=== PATIENT | male | born 1950 | race Caucasian/White ===

== ENCOUNTER → 2019-07-04 | Outpatient (CLI) | payer MEDICARE | DX: R53.83 Other fatigue (principal); R22.9 Localized swelling, mass and lump, unspecified ==

== ENCOUNTER 2019-07-09 13:45 | Observation (INO) | payer MEDICARE ==
--- NOTE | 2019-07-09 13:52 | ED.PDOC ---
History of Present Illness - General Time Seen by Provider: 07/09/19 13:51 - History of Present Illness Initial Comments: 68 yo M PMH HTN HL Thyroid Disease presents to ED c/o cough SOB x 1 day. Also admits mcfarland and PND denies fever chills nausea vomiting diarrhea chest pain diaph oresis. No change in diet bowel or bladder symptoms disturb rest when lying flat. Admits dipping tobacco denies drinking or smoking admits FH HTN denies FH DM has PMD Dr. Iyer for follow up no other c/o today. Allergies/Adverse Reactions: Allergies NO KNOWN ALLERGY Allergy (Verified 07/09/19 14:20) Review of Systems - Review of Systems Constitutional: States: see HPI EENTM: States: see HPI Respiratory: States: see HPI Cardiology: States: see HPI Gastrointestinal/Abdominal: States: see HPI Genitourinary: States: see HPI Musculoskeletal: States: see HPI Skin: States: see HPI Neurological: States: see HPI Endocrine: States: see HPI Hematologic/Lymphatic: States: see HPI All other Systems: Reviewed and Negative Family Medical History - Family History Brother Living Status: Hx Family Hypertension: Yes Physical Exam - Physical Exam General Appearance: No apparent distress Ears, Nose, Throat: normal ENT inspection Neck: non-tender, full range of motion Respiratory: rales, wheezing Cardiovascular/Chest: regular rate, rhythm Gastrointestinal/Abdominal: non tender, soft Rectal Exam: deferred Back Exam: no CVA tenderness Extremity: swelling Neurologic: no motor/sensory deficits Skin Exam: normal color Progress - Progress Progress: 07/09/19 14:04 A/P-Cough SOB-iv cbc cmp lipase bnp trop ekg cxr playground monitor pulse ox flu strep reassess 07/09/19 16:44 Laboratory Tests 07/09/19 07/09/19 07/09/19 13:57 14:03 14:03 WBC 9.9 RBC 4.71 Hgb 14.2 Hct 42.3 MCV 89.8 MCH 30.0 MCHC 33.5 RDW 13.0 Plt Count 478 H MPV 6.7 L Absolute Neuts (auto) 7.00 H Absolute Lymphs (auto) 1.70 Absolute Monos (auto) 0.80 Absolute Eos (auto) 0.20 Absolute Basos (auto) 0.10 Neutrophils % 71.0 Lymphocytes % 17.7 L Monocytes % 7.9 Eosinophils % 2.2 Basophils % 1.2 PT 10.0 INR 1.01 PTT (SP) 27.5 Sodium Potassium Chloride Carbon Dioxide Anion Gap BUN Creatinine BUN/Creatinine Ratio Random Glucose Serum Osmolality Lactic Acid Calcium Total Bilirubin AST ALT Alkaline Phosphatase Troponin I B-Natriuretic Peptide 57.9 Serum Total Protein Albumin Globulin Albumin/Globulin Ratio Lipase Urine Color Urine Appearance Urine pH Ur Specific [place] Urine Protein Urine Glucose (UA) Urine Ketones Urine Blood Urine Nitrite Urine Bilirubin Urine Urobilinogen Ur Leukocyte Esterase Urine RBC Urine WBC Ur Epithelial Cells Urine Bacteria Group A Strep Rapid 07/09/19 07/09/19 07/09/19 14:03 14:03 14:03 WBC RBC Hgb Hct MCV MCH MCHC RDW Plt Count MPV Absolute Neuts (auto) Absolute Lymphs (auto) Absolute Monos (auto) Absolute Eos (auto) Absolute Basos (auto) Neutrophils % Lymphocytes % Monocytes % Eosinophils % Basophils % PT INR PTT (SP) Sodium 138 Potassium 3.8 Chloride 104 Carbon Dioxide 28 Anion Gap 9.8 L BUN 17 Creatinine 0.96 BUN/Creatinine Ratio 17.7 Random Glucose 85 Serum Osmolality 276.5 Lactic Acid 1.4 Calcium 9.0 Total Bilirubin 0.6 AST 19 ALT 18 Alkaline Phosphatase 58 Troponin I < 0.02 B-Natriuretic Peptide Serum Total Protein 7.8 Albumin 3.4 Globulin 4.4 H Albumin/Globulin Ratio 0.8 L Lipase 34 Urine Color Urine Appearance Urine pH Ur Specific [place] Urine Protein Urine Glucose (UA) Urine Ketones Urine Blood Urine Nitrite Urine Bilirubin Urine Urobilinogen Ur Leukocyte Esterase Urine RBC Urine WBC Ur Epithelial Cells Urine Bacteria Group A Strep Rapid 07/09/19 07/09/19 07/09/19 14:53 14:53 15:36 WBC RBC Hgb Hct MCV MCH MCHC RDW Plt Count MPV Absolute Neuts (auto) Absolute Lymphs (auto) Absolute Monos (auto) Absolute Eos (auto) Absolute Basos (auto) Neutrophils % Lymphocytes % Monocytes % Eosinophils % Basophils % PT INR PTT (SP) Sodium Potassium Chloride Carbon Dioxide Anion Gap BUN Creatinine BUN/Creatinine Ratio Random Glucose Serum Osmolality Lactic Acid Calcium Total Bilirubin AST ALT Alkaline Phosphatase Troponin I < 0.02 B-Natriuretic Peptide Serum Total Protein Albumin Globulin Albumin/Globulin Ratio Lipase Urine Color Yellow Urine Appearance Clear Urine pH 5.0 Ur Specific [place] 1.010 Urine Protein Negative Urine Glucose (UA) Negative Urine Ketones Negative Urine Blood Moderate H Urine Nitrite Negative Urine Bilirubin Negative Urine Urobilinogen 0.2 Ur Leukocyte Esterase Negative Urine RBC 1-3 Urine WBC 0 Ur Epithelial Cells 0 Urine Bacteria 0 Group A Strep Rapid Negative EXAM DESCRIPTION: Chest,1 View CLINICAL HISTORY: SOB COMPARISON: None available FINDINGS: The cardiac silhouette is enlarged, bilateral hilar prominence. Moderate size right-sided pleural effusion. Bilateral interstitial and patchy alveolar opacities. Mass lesion in the left lung apex. The lung volumes are within normal range. There is no pneumothorax or acute fracture. IMPRESSION: Mass lesion in the left lung apex concerning for neoplasm. Chest CT with IV contrast is recommended. Bilateral pneumonia or edema with a moderate sized right-sided pleural effusion. Electronically signed by: Darion Bustos MD 07/09/2019 2:46 PM CDT Dx-Lung Mass, Pleural Effusion EXAM DESCRIPTION: CTA Chest CLINICAL HISTORY: 68 years Male pleural effusion SOB query mass COMPARISON: Radiograph of the chest performed on the same day. TECHNIQUE: Images were obtained in axial, sagittal, and coronal planes. Intravenous contrast was administered. Multiplanar reconstruction was performed. This exam was performed according to our departmental dose-optimization program which includes use of Automated Exposure Control, adjustment of the mA and/or kV according to patient size and/or use of iterative reconstruction technique. FINDINGS: No filling defects pulmonary arteries bilaterally. No aortic dissection or dilatation. Large right pleural effusion. Moderate left pleural effusion. Increased pulmonary vascularity. Multiple nodular lesions lung lee bilaterally. The findings measures 60 Hounsfield units and greater. 6.0 x 6.2 cm mass versus confluent nodularity contiguous with right heart. Pericardial involvement suspected. Additional hilar adenopathy bilaterally. The largest on the right measures 3.4 cm. The largest on the left measures 3.1 cm. Airspace at tenuation lower lobes bilaterally right greater than left consistent with infiltrate and atelectatic change. No abnormality upper abdomen. Small hiatal hernia. No acute osseous abnormality. Marked degenerative change thoracic spine. IMPRESSION: No evidence for pulmonary embolus. No aortic dissection or dilatation. Extensive noncalcified nodular lesions lung lee bilaterally most suspicious for metastatic disease. Inflammatory process less likely. 6 cm confluent nodularity versus nodular mass contiguous with right atrium. Associated infiltrate and atelectatic change lower lobes bilaterally. Bilateral pleural effusions right greater than left. Superimposed congestive heart failure suspected. Electronically signed by: Dede Becerra MD 07/09/2019 5:36 PM CDT 07/09/19 18:24 07/09/19 19:04 ADMIT - Results/Orders Results/Orders: EKG-non specific TW changes No STEMI [id number] Departure - Departure Clinical Impression: Pleural effusion, Lung mass Bilateral pneumonia Qualifiers: Pneumonia type: due to unspecified organism Lung location: unspecified part of lung Qualified Code(s): J18.9 - Pneumonia, unspecified organism Disposition: Admit Patient Condition: Poor Decision To Admit - Decistion To Admit Decision to Admit Date: 07/09/19 Decision to Admit Time: 19:06 - Gia Ferreira Accepts
[2019-07-09] MEDS ORDERED: DEXAMETHASONE INJ 10 MG/ML VIAL IV ONE (13:58)
--- NOTE | 2019-07-09 14:48 | RAD ---
EXAM DESCRIPTION: Chest,1 View CLINICAL HISTORY: SOB COMPARISON: None available FINDINGS: The cardiac silhouette is enlarged, bilateral hilar prominence. Moderate size right-sided pleural effusion. Bilateral interstitial and patchy alveolar opacities. Mass lesion in the left lung apex. The lung volumes are within normal range. There is no pneumothorax or acute fracture. IMPRESSION: Mass lesion in the left lung apex concerning for neoplasm. Chest CT with IV contrast is recommended. Bilateral pneumonia or edema with a moderate sized right-sided pleural effusion. Electronically signed by: Darion Bustos MD 07/09/2019 2:46 PM CDT
[2019-07-09] MEDS ORDERED: IPRATROPIUM/ALBUTEROL 3 ML VIAL NEB ONE (17:03)
--- NOTE | 2019-07-09 17:38 | CT ---
EXAM DESCRIPTION: CTA Chest CLINICAL HISTORY: 68 years Male pleural effusion SOB query mass COMPARISON: Radiograph of the chest performed on the same day. TECHNIQUE: Images were obtained in axial, sagittal, and coronal planes. Intravenous contrast was administered. Multiplanar reconstruction was performed. This exam was performed according to our departmental dose-optimization program which includes use of Automated Exposure Control, adjustment of the mA and/or kV according to patient size and/or use of iterative reconstruction technique. FINDINGS: No filling defects pulmonary arteries bilaterally. No aortic dissection or dilatation. Large right pleural effusion. Moderate left pleural effusion. Increased pulmonary vascularity. Multiple nodular lesions lung lee bilaterally. The findings measures 60 Hounsfield units and greater. 6.0 x 6.2 cm mass versus confluent nodularity contiguous with right heart. Pericardial involvement suspected. Additional hilar adenopathy bilaterally. The largest on the right measures 3.4 cm. The largest on the left measures 3.1 cm. Airspace attenuation lower lobes bilaterally right greater than left consistent with infiltrate and atelectatic change. No abnormality upper abdomen. Small hiatal hernia. No acute osseous abnormality. Marked degenerative change thoracic spine. IMPRESSION: No evidence for pulmonary embolus. No aortic dissection or dilatation. Extensive noncalcified nodular lesions lung lee bilaterally most suspicious for metastatic disease. Inflammatory process less likely. 6 cm confluent nodularity versus nodular mass contiguous with right atrium. Associated infiltrate and atelectatic change lower lobes bilaterally. Bilateral pleural effusions right greater than left. Superimposed congestive heart failure suspected. Electronically signed by: Dede Becerra MD 07/09/2019 5:36 PM CDT
--- NOTE | 2019-07-09 20:52 | HP ---
SUPERVISING PHYSICIAN: Forest Amaral MD CHIEF COMPLAINT: Cough and shortness of breath. HISTORY OF PRESENT ILLNESS: This is an 68 year-old male patient who presented to the Emergency Room with coughing, shortness of breath or around 10 days. He also said he was significantly short of breath with exertion but he has had no fever, chills, nausea or vomiting. No chest pain. He does use smokeless tobacco but he has not smoked tobacco or used any ETOH. He is significantly short of breath when he lies flat. He is not taking anything to relieve his symptoms. He is supposed to see Dr. Iyer at some point but he has seen Dr. Amaral in the past. In the Emergency Room, his initial vital signs showed temperature of 99.3, heart rate 80, blood pressure 181/95, respiratory rate 32% with a 92% oxygen saturation on room air. His initial lab studies showed a CBC that was basically within normal limits. His temperature was also within normal limits, lactic acid of 1.4 with a troponin of less than 0.02. Urinalysis was negative. Group A strep was negative. Influenza per PCR was negative. Blood cultures were drawn. Initial chest x-ray showed: Mass lesion in the left lung apex concerning for neoplasm. Chest CT with IV contrast recommendations. Bilateral pneumonia or edema with a moderate sized left-sided pleural effusion. I was called for admission but requested a CT of the chest to be done as well as several breathing treatments. The patient was given some breathing treatments and he was also given some Decadron. CTA was done and the report showed no evidence for pulmonary embolus, no aortic dissection or dilatation. Extensive noncalcified nodular lesions lung lee bilaterally most consistent for a metastatic disease, inflammatory process less likely, 6 cm confluent nodularity versus nodular mass contiguous with right atrium. Associated infiltrate and atelectatic change, lower lobe bilaterally. Bilateral pleural effusions right greater than left, superimposed congestive heart failure suspected. The patient was admitted to the hospital for bilateral pneumonia. PAST MEDICAL HISTORY: 1. Hyperlipidemia. 2. Hypertension. 3. Hypothyroidism. PAST SURGICAL HISTORY: None. CURRENT MEDICATIONS: Per the EMR and awaiting verification. ALLERGIES: No known drug allergies. FAMILY HISTORY: SOCIAL HISTORY: He is retired as a former ranch campo. He uses smokeless tobacco. He denies any cigarette, ETOH or illicit drug use. REVIEW OF SYSTEMS: GENERAL: Negative for fever, fatigue or weight changes. . HEENT: Negative for sinus symptoms, ear pain, vision changes, shortness of breath. . RESPIRATORY: Positive for coughing, shortness of breath. Negative for wheezing. CARDIAC: Negative for chest pain, palpitations, tachycardia. GI: Negative for nausea or vomiting, diarrhea or constipation. . GENITOURINARY: Negative for hematuria, dysuria, polyuria. MUSCULOSKELETAL: Negative for arthralgias, myalgias.. SKIN: Negative for lesions or rashes. NEUROLOGICAL: Negative for headaches, weakness or seizures. PHYSICAL EXAMINATION: VITAL SIGNS: Temperature 99.3, heart rate 84, blood pressure 180/77, respiratory rate now 22, oxygen saturation 94% on room air. GENERAL: This is a 68 year-old male patient lying in his hospital bed. He is in no acute distress. HEENT: Normocephalic and atraumatic. Pupils equal and reactive. Oropharynx clear.l NECK: Supple without mass. RESPIRATORY: Essentially clear to auscultation. He is diminished at the bases. He speaks in 4 to 5 word phrases but his breathing is nonlabored. He is actually eating at this time. CARDIOVASCULAR: Regular rate and rhythm. ABDOMEN: Soft, nondistended, non-tender. Bowel sounds are positive. EXTREMITIES: No cyanosis, clubbing, or edema. NEUROLOGIC: He is awake, alert, and oriented x3. SKIN: Warm and dry. Labs and films are as per the history of present illness. ASSESSMENT: 1. Bilateral lower lobe pneumonia, most likely community acquired. 2. Lung mass as per chest x-ray and CTA consistent with a neoplastic etiology. Will need further workup. 3. Hyperlipidemia. 4. Hypertension. 5. Hypothyroidism on supplementation. PLAN: The patient has been placed in observation. We will treat his pneumonia and I have initiated the pneumonia guidelines and he has been started on Levaquin. Will monitor his cultures as they become available. He will be on the pneumonia guidelines. I will restart her home medications as soon as they are verified. He will have Lovenox for DVT prophylaxis and upon discharge he will need an oncology workup with his primary care physician, Dr. Welch;. I have ordered lab for in the morning.. He will have judicious fluids overnight and we will continue to monitor closely and follow as needed. #[id number]
[2019-07-09] MEDS ORDERED: ACETAMINOPHEN 325 MG TAB PO PRN (22:17)
[2019-07-09] MEDS ORDERED: ALBUTEROL SULFATE 2.5 MG/3 ML VIAL NEB PRN (22:17)
[2019-07-09] MEDS ORDERED: SODIUM CHLORIDE 0.9% (FLUSH) 10 ML SYG IV PRN (22:17)
[2019-07-09] MEDS ORDERED: ONDANSETRON INJ 4 MG/2 ML VIAL IV PRN (22:17)
[2019-07-09] MEDS ORDERED: cloNIDine HCL 0.1 MG TAB PO ONE (22:29)
[2019-07-09] MEDS ORDERED: IV SET AND CAP CHANGE INJ INJ SCH (22:30)
[2019-07-09] MEDS ORDERED: levoFLOXacin 500MG IV 500 MG in PREMIX BAG 1 BAG IVPB SCH (22:30)
[2019-07-09] MEDS ORDERED: levoFLOXacin 500MG IV 100 ML IVPB ONE (22:37)
[2019-07-10] MEDS ORDERED: LEVOTHYROXINE SODIUM 0.025 MG TAB ONE (00:58)
[2019-07-10] MEDS ORDERED: LEVOTHYROXINE SODIUM 0.075 MG TAB ONE (00:58)
[2019-07-10] MEDS ORDERED: methylPREDNISolone SODIUM SUC 40 MG/ML VIAL IV SCH (06:00)
[2019-07-10] MEDS ORDERED: PANTOPRAZOLE SODIUM IV 40 MG VIAL IV SCH (06:30)
[2019-07-10] MEDS ORDERED: LEVOTHYROXINE SODIUM 0.1 MG TAB PO SCH (07:00)
[2019-07-10] MEDS ORDERED: LEVOTHYROXINE SODIUM 0.1 MG TAB ONE (07:00)
--- NOTE | 2019-07-10 07:22 | RAD ---
EXAM: Two view chest. INDICATION: Pneumonia. COMPARISON: Chest x-ray: 06/10/2019. FINDINGS: Again noted are bilateral pulmonary masses with a right basilar airspace opacity and moderate right pleural effusion. There is a small left pleural effusion. The heart size is stable. There is no pneumothorax. The bones are unchanged. IMPRESSION: No significant change compared to the prior exam. Bilateral pulmonary masses with bilateral pleural effusions, right pleural effusion larger than the left Electronically signed by: Jabari Barton MD 07/10/2019 7:21 AM CDT
[2019-07-10] MEDS ORDERED: IPRATROPIUM/ALBUTEROL 3 ML VIAL INH SCH (08:00)
[2019-07-10] MEDS ORDERED: LISINOPRIL 10 MG TAB ONE (08:03)
[2019-07-10] MEDS ORDERED: NON-FORMULARY MEDICATION 1 EA MIS (Lisinopril [Lisinopril] 20 MG) PO SCH (09:00)
[2019-07-10] MEDS ORDERED: METOPROLOL SUCCINATE XL 100 MG TAB PO SCH (09:00)
[2019-07-10] MEDS ORDERED: SODIUM CHLORIDE 0.9% (FLUSH) 10 ML SYG IV SCH (09:00)
[2019-07-10 10:36] VITALS: O2SAT 97
[2019-07-10 13:53] VITALS: BP 150/66; TEMP 98.5
[2019-07-10] MEDS ORDERED: ENOXAPARIN SODIUM 40 MG/0.4 ML SYG SUBCU SCH (21:00)
[2019-07-11] MEDS ORDERED: LEVOTHYROXINE SODIUM 0.1 MG TAB PO SCH (07:00)
[2019-07-11] MEDS ORDERED: LISINOPRIL 10 MG TAB PO SCH (09:00)
--- NOTE | 2019-07-13 10:55 | DS ---
SUPERVISING PHYSICIAN: Lloyd Nolasco MD DISCHARGE DIAGNOSIS: 1. Bilateral lower lobe pneumonia, most likely community acquired. 2. Lung mass as per chest x-ray and CTA consistent with a neoplastic etiology. Will need further workup. 3. Hyperlipidemia. 4. Hypertension. 5. Hypothyroidism on supplementation. HISTORY OF PRESENT ILLNESS: This is an 68-year-old male patient who presented to the Emergency Room with coughing, shortness of breath that had been going on about 10 days. He also was significantly short of breath with exertion but he had no fever, chills, nausea or vomiting. No chest pain. He does use smokeless tobacco but he has not smoked tobacco or used any ETOH in many years. He is significantly short of breath when he lies flat. He did not take any OTC medications. He was somewhat confused initially and thought he was supposed to see Dr. Iyer, but actually he had seen Dr. Amaral recently. In the Emergency Room, his initial vital signs showed temperature of 99.3, heart rate 80, blood pressure 181/95, respiratory rate 32% with a 92% oxygen saturation on room air. His initial lab studies showed a CBC that was within normal limits. Electrolytes were basically within normal limits. Lactic acid was 1.4, troponin less than 0.02. Urinalysis was negative. Group A strep was negative. Influenza per PCR was negative. Blood cultures were drawn. Initial chest x-ray showed: Mass lesion in the left lung apex concerning for neoplasm. Chest CT with IV contrast was recommended. Bilateral pneumonia or edema with a moderate sized left-sided pleural effusion. I was called for admission but requested a CT of the chest to be done as well as several breathing treatments. The patient was given some breathing treatments in the Emergency Room as well as some Decadron. CTA of the chest was done and the report showed no evidence for pulmonary embolus, no aortic dissection or dilatation. Extensive noncalcified nodular lesions in lung lee bilaterally most consistent with metastatic disease, inflammatory process less likely, 6 cm confluent nodularity versus nodular mass contiguous with right atrium. Associated infiltrate and atelectatic changes, lower lobe bilaterally. Bilateral pleural effusions, right greater than left, superimposed congestive heart failure suspected. The patient was admitted to the hospital in observation. HOSPITAL COURSE: The pneumonia guidelines were initiated. He was started on Levaquin. His cultures were monitored. His home medications were restarted. He was on Lovenox for DVT prophylaxis. He had judicious fluids overnight and he was much improved by the morning. His respiratory rate was normal. He has no complaints of shortness of breath or chest pain. I spoke with Dr. Amaral and he had done a workup prior to his admission to the Emergency Room. He had some lymph nodes that were prominent in his left axilla. He also had a mammogram of the left breast. I told him the findings of the CTA and he would see him in followup after discharge. LABORATORY: Initial WBC was 9.9. It did go up to 13,000 on the second day. Hemoglobin and hematocrit were stable. He did have a slight left shift on differential the morning of discharge. Electrolytes are within normal limits. Glucose was up to 114. MICROBIOLOGY: Blood cultures pending. Group A Strep culture is pending. RADIOLOGY: Followup chest x-ray shows no significant change compared to prior exam. Bilateral pulmonary masses with bilateral pleural effusion, right larger than left. DISCHARGE PLAN: The patient will be discharged home in stable condition. He is to resume his previous diet and increase his activity as tolerated. He has a followup appointment with Dr. Amaral on 07/13/19 at 8:45 AM. He is to resume his home medications. He is to continue for 6 additional days of Levaquin as well as Medrol Dosepak. At his followup appointment, it may be beneficial to have a chest x-ray as well as he will need an oncology consult. He is to return to the hospital or call Dr. Amaral's office for any problems or complications. DISCHARGE MEDICATIONS: 1. Metoprolol. 2. Lisinopril. 3. Levothyroxine. 4. Levaquin. 5. Medrol Dosepak. #[id number] MTDD
== END 2019-07-10 14:10 | disposition home or self-care (01) ==
LOC: ER 13:45 → MS 20:51
PROVIDERS: ADMIT Nurse Practitioner Acute Care; ATTEND Nurse Practitioner Acute Care
DX: J18.1 Lobar pneumonia, unspecified organism (principal); R91.8 Other nonspecific abnormal finding of lung field; J90 Pleural effusion, not elsewhere classified; E78.5 Hyperlipidemia, unspecified; I10 Essential (primary) hypertension; E03.9 Hypothyroidism, unspecified; F17.220 Nicotine dependence, chewing tobacco, uncomplicated; Z79.899 Other long term (current) drug therapy; Z82.49 Family history of ischemic heart disease and other diseases of the circulatory system
CPT/HCPCS: 96374; 96375 ×2; J1956; J1030 ×2; J1100; J7620 ×2; 80053 ×2; 87880; 36415 ×2; 81001; 85025 ×2; 87040 ×2; 83690; 85730; 85610; 87070; 84484 ×2; 83880; 83605; 71045; 71046; 71275; 94640 ×2; 94760 ×3; 99285; 93306; 93005; 87502

== ENCOUNTER 2019-07-13 08:53 | Emergency (ER) | payer MEDICARE ==
--- NOTE | 2019-07-13 09:48 | ED.PDOC ---
History of Present Illness - General Chief Complaint: Respiratory Problem Stated Complaint: shortness of breath Time Seen by Provider: 07/13/19 09:09 Additional Information: Patient is a 68-year-old male who presents from his primary care physician's office with chief complaint of abnormal vital signs. Patient was just released from the hospital 3 days ago following treatment for pneumonia and pleural effusion. Patient indicates that he is feeling much better and has no shortness of breath or chest pain or fever. Patient indicates he went to see his primary care doctor today for follow-up and was noted to have "abnormal vital signs" and sent to the emergency department for evaluation. Patient denies history of CAD or atrial fibrillation and is unsure if he is on blood thinner. He states that he does not have a television news reporter. - History of Present Illness Allergies/Adverse Reactions: Allergies NO KNOWN ALLERGY Allergy (Verified 07/09/19 14:20) Home Medications: Ambulatory Orders Levothyroxine Sodium [Synthroid] 100 mcg PO DAILY 07/09/19 Lisinopril 20 mg PO DAILY 07/09/19 Metoprolol Succinate [Metoprolol Succinate ER] 100 mg PO DAILY 07/09/19 Methylprednisolone [Medrol Dose Rahul] 4 mg PO DAILY 6 Days #21 tab 07/10/19 levoFLOXacin [Levaquin] 500 mg PO DAILY #6 tab 07/10/19 Review of Systems - Review of Systems Constitutional: Denies: chills, fever EENTM: States: no symptoms reported Respiratory: Denies: cough, short of breath Cardiology: States: palpitations. Denies: chest pain, edema Gastrointestinal/Abdominal: Denies: nausea, vomiting Musculoskeletal: States: no symptoms reported Skin: States: no symptoms reported Neurological: States: no symptoms reported All other Systems: Reviewed and Negative Past Medical History (General) - Patient Medical History Hx Seizures: No Hx Stroke: No Hx Asthma: No Hx of COPD: No Hx Congestive Heart Failure: No Hx Pacemaker: No Hx Hypertension: Yes Hx Thyroid Disease: Yes Hx Diabetes: No Hx MRSA: No - Vaccination History Hx Tetanus, Diphtheria Vaccination: No Hx Influenza Vaccination: No Hx Pneumococcal Vaccination: No - Social History Hx Tobacco Use: No Hx Alcohol Use: No Hx Substance Use: No Hx Substance Use Treatment: No Hx Depression: No Hx Physical Abuse: No Hx Emotional Abuse: No Family Medical History - Family History Brother Living Status: Hx Family Hypertension: Yes Physical Exam - Physical Exam General Appearance: Alert, Comfortable, No apparent distress, Obese Neck: supple, normal inspection Respiratory: chest non-tender, lungs clear, normal breath sounds, no respiratory distress, no accessory muscle use Cardiovascular/Chest: no murmur, irregularly irregular Gastrointestinal/Abdominal: normal bowel sounds, non tender, soft Back Exam: normal inspection Extremity: normal range of motion, pedal edema - ly Neurologic: occupational health rn II-XII nml as tested, no motor/sensory deficits, alert, normal mood/affect, oriented x 3 Skin Exam: normal color, warm/dry Progress - Progress Progress: 07/13/19 09:50 Patient presents in acute atrial fibrillation today with heart rate ranging from the low 100s to 160. Patient is not short of breath and is afebrile and I have a low clinical concern for recurrent pneumonia but will repeat sepsis screening and begin Cardizem for rate control. 07/13/19 10:43 EKG: Atrial fibrillation rate of 110, normal axis, normal QRS, occasional PVCs, nonspecific T wave changes nonspecific ST changes. Negative STEMI. Read by Dae Iyer MD. 07/13/19 12:11 Patient remains comfortable and stable at this time. He is rate controlled in the 80s to 90s on Cardizem drip but still in afib. Patient's labs are unremarkable and his chest x-ray shows continued pleural effusion but with no new pathology. We will transfer patient to [place] for evaluation of new onset A. fib with RVR. Patient is medically clear and stable for transfer at this time. 07/13/19 12:[address] Ortega, television news reporter at [facility], who accepts patient to ED to inpatient transfer. - Results/Orders Results/Orders: 07/13/19 09:21 IV:Start .ONCE 07/13/19 09:45 EKG STAT 07/13/19 10:00 diltiaZEM DRIP [Cardizem Drip] 125 mg Sodium Chloride 0.9% 100Ml [NS (NACL 0.9%) 100ml] 100 ml IVPB PRN 07/13/19 10:18 BLOOD CULTURE Stat 07/13/19 12:15 EKG .ONCE Laboratory Results WBC 12.2 K/mm3 (4.8-10.8) H 07/13/19 09:30 RBC 4.93 M/mm3 (4.70-6.10) 07/13/19 09:30 Hgb 14.5 gm/dL (14.0-18.0) 07/13/19 09:30 Hct 44.0 % (42.0-52.0) 07/13/19 09:30 MCV 89.4 fl (80.0-94.0) 07/13/19 09:30 MCH 29.4 pg (27.0-31.0) 07/13/19 09:30 MCHC 32.9 g/dL (33.0-37.0) L 07/13/19 09:30 RDW 13.6 % (11.5-14.5) 07/13/19 09:30 Plt Count 493 K/mm3 (130-400) H 07/13/19 09:30 MPV 7.1 fl (7.40-10.4) L 07/13/19 09:30 Absolute Neuts (auto) 8.80 K/uL (1.8-6.8) H 07/13/19 09:30 Absolute Lymphs (auto) 2.20 K/uL (1.0-3.4) 07/13/19 09:30 Absolute Monos (auto) 0.80 K/uL (0.2-0.8) 07/13/19 09:30 Absolute Eos (auto) 0.30 K/uL (0.0-0.4) 07/13/19 09:30 Absolute Basos (auto) 0.10 K/uL (0.0-0.1) 07/13/19 09:30 Neutrophils % 72.1 % (42.0-78.0) 07/13/19 09:30 Lymphocytes % 18.2 % (20.0-50.0) L 07/13/19 09:30 Monocytes % 6.9 % (2.0-9.0) 07/13/19 09:30 Eosinophils % 2.3 % (1.0-5.0) 07/13/19 09:30 Basophils % 0.5 % (0.0-2.0) 07/13/19 09:30 Sodium 137 mmol/L (135-145) 07/13/19 09:30 Potassium 3.7 mmol/L (3.6-5.0) 07/13/19 09:30 Chloride 102 mmol/L (101-111) 07/13/19 09:30 Carbon Dioxide 25 mmol/L (21-31) 07/13/19 09:30 Anion Gap 13.7 (12-18) 07/13/19 09:30 BUN 19 mg/dL (7-18) H 07/13/19 09:30 Creatinine 0.98 mg/dL (0.6-1.3) 07/13/19 09:30 BUN/Creatinine Ratio 19.4 (10-20) 07/13/19 09:30 Random Glucose 110 mg/dL (70-105) H 07/13/19 09:30 Serum Osmolality 276.7 mOsm/L (275-295) 07/13/19 09:30 Lactic Acid 1.4 mmol/L (0.5-2.2) 07/13/19 09:30 Calcium 8.9 mg/dL (8.4-10.2) 07/13/19 09:30 Total Bilirubin 0.5 mg/dL (0.2-1.0) 07/13/19 09:30 AST 19 IU/L (10-42) 07/13/19 09:30 ALT 23 IU/L (10-60) 07/13/19 09:30 Alkaline Phosphatase 65 IU/L (42-121) 07/13/19 09:30 Troponin I < 0.02 ng/mL (0.01-0.05) 07/13/19 09:45 B-Natriuretic Peptide 34.6 pg/ml (0-100) 07/13/19 09:45 Serum Total Protein 7.7 gm/dL (6.4-8.2) 07/13/19 09:30 Albumin 3.5 g/dl (3.2-5.5) 07/13/19 09:30 Globulin 4.2 gm/dL (2.3-3.5) H 07/13/19 09:30 Albumin/Globulin Ratio 0.8 (1.1-1.9) L 07/13/19 09:30 Departure - Departure Clinical Impression: Atrial fibrillation with RVR Time of Disposition: 12:22 Disposition: Transfer to Hospital Condition: Excellent Home Medications: Ambulatory Orders Levothyroxine Sodium [Synthroid] 100 mcg PO DAILY 07/09/19 Lisinopril 20 mg PO DAILY 07/09/19 Metoprolol Succinate [Metoprolol Succinate ER] 100 mg PO DAILY 07/09/19 Methylprednisolone [Medrol Dose Rahul] 4 mg PO DAILY 6 Days #21 tab 07/10/19 levoFLOXacin [Levaquin] 500 mg PO DAILY #6 tab 07/10/19 Transfer to Outside Facility - Transfer Information Decision to Transfer Date: 07/13/19 Decision to Transfer Time: 12:23 Reason for Transfer: specialized care not available Accepting Provider:: Dr. Ortega Accepting Facility: [facility]
--- NOTE | 2019-07-13 09:57 | RAD ---
EXAM DESCRIPTION: Chest,1 View CLINICAL HISTORY: 68 years Male, SOB COMPARISON: Radiograph the chest dated 07/10/2019. TECHNIQUE: AP radiograph of the chest was obtained. FINDINGS: Trachea is midline.The cardiomediastinal silhouette is enlarged in size. Bilateral pulmonary vascular congestion. Airspace opacities/masses are again identified throughout both lungs with moderate to large right pleural effusion. IMPRESSION: Stable appearance of the chest compared to prior examination. Electronically signed by: Salena Garcia MD 07/13/2019 9:55 AM CDT
[2019-07-13] MEDS ORDERED: diltiaZEM DRIP 125 MG in SODIUM CHLORIDE 0.9% 100ML 100 ML IVPB SCH (10:00)
[2019-07-13] MEDS ORDERED: diltiaZEM DRIP 125 MG/25 ML VIAL IVPB ONE (10:02)
[2019-07-13] MEDS ORDERED: SODIUM CHLORIDE 0.9% 100ML 100 ML IVPB ONE (10:02)
[2019-07-13 13:08] VITALS: O2SAT 96
[2019-07-13 13:30] VITALS: BP 129/71; TEMP 97.9
== END 2019-07-13 13:15 | disposition short-term general hospital (02) ==
LOC: ER 08:53
DX: I48.91 Unspecified atrial fibrillation (principal); R00.0 Tachycardia, unspecified; R06.02 Shortness of breath; I49.3 Ventricular premature depolarization; I10 Essential (primary) hypertension; E07.9 Disorder of thyroid, unspecified; Z87.01 Personal history of pneumonia (recurrent); Z79.899 Other long term (current) drug therapy
CPT/HCPCS: 36415; 71045; 80053; 83605; 83880; 84439; 84484; 85025; 87040; 87502; 93005; J7050